=== PATIENT | female | born 1990 | race Caucasian/White ===

== ENCOUNTER 2024-08-26 09:04 | Emergency (ER) | payer OTHER ==
[~2024-08-26] VITALS: Ht 167.6 cm
[2024-08-26 10:06] LABS: BILIRUBIN Negative (Negative); BLOOD Negative (Negative); CLARITY Clear (Clear); COLOR Yellow (Yellow); GLUCOSE Negative (Negative); KETONE Negative (Negative); LEUKO ESTERASE Negative (Negative); NITRITE Negative (Negative)
[2024-08-26 10:23] LABS: BACTERIA 1+; WBC 0-2 wbc/hpf (0-5)
[2024-08-26] MEDS ORDERED: AZITHROMYCIN 250 MG TAB PO ONE (12:05)
[2024-08-26] MEDS ORDERED: cefTRIAXone Sodium 500 MG VIAL IM ONE (12:05)
== END 2024-08-26 12:12 | disposition home or self-care (01) ==
LOC: ED 09:04
PROVIDERS: Internal Medicine
DX: S50.12XA Contusion of left forearm, initial encounter (principal); S50.11XA Contusion of right forearm, initial encounter; M54.50 Low back pain, unspecified; Z20.2 Contact with and (suspected) exposure to infections with a predominantly sexual mode of transmission; E11.9 Type 2 diabetes mellitus without complications; Z88.6 Allergy status to analgesic agent; Z91.030 Bee allergy status; W01.0XXA Fall on same level from slipping, tripping and stumbling without subsequent striking against object, initial encounter; Y93.89 Activity, other specified; Y92.89 Other specified places as the place of occurrence of the external cause; Y99.8 Other external cause status